=== PATIENT | female | born 2000 | race Caucasian/White ===

== ENCOUNTER 2019-03-18 19:04 | Emergency (ER) | payer OTHER ==
--- NOTE | 2019-03-18 19:24 | ERPHSYRPT ---
- History of Present Illness Time Seen by Provider: 03/18/19 19:20 Source: patient, family Exam Limitations: no limitations Patient Subjective Stated Complaint: Pt states, "I have a headache, dizziness, lightheadedness, sore throat and cough". Pt states, "I am achy and haven't felt good for a week." Triage Nursing Assessment: pt ambulated to rm 8, grandma at bedside, pt alert and oriented x3, cooperative. Pt c/o dizziness, light headedness, headache. Pt c/o of having cold symptoms x1 week, cough, runny nose and sore throat. Lungs clear, heart tones reg, pt had pacemaker, defib. Abd soft with active bs x4 quad, nontender. Physician History: Patient has had congestion, sore throat, cough for the past week. No evaluation or treatment prior to coming into the emergency department. Timing/Duration: gradual onset Severity: moderate ENT Location: throat Prearrival Treatment: no prearrival treatment Modifying Factors: Improves With: nothing Associated Symptoms: cough, fever (last fever was in the morning of 03/17/2019) , dizziness, headache, nasal congestion/drainage, sore throat, No ear pain (R), No ear pain (L), No chills, No change in hearing, No drooling, No ear drainage, No facial pain/swelling, No hearing loss, No jaw pain, No malaise, No motion sickness, No epistaxis, No nasal foreign body, No neck pain, No poor fluid intake, No poor solids intake, No ringing of ears, No swollen glands, No sinus infection, No tooth pain, No difficulty swallowing, No voice change Allergies/Adverse Reactions: amoxicillin [From Augmentin] Adverse Reaction (Verified 03/18/19 19:23) Rash clavulanic acid [From Augmentin] Adverse Reaction (Verified 03/18/19 19:23) Rash Hx Tetanus, Diphtheria Vaccination/Date Given: Yes Hx Influenza Vaccination/Date Given: No Hx Pneumococcal Vaccination/Date Given: No Immunizations Up to Date: Yes - Review of Systems Constitutional: Fever, No Chills, No Fatigue Eyes: No Eye Pain, No Vision Changes Ears, Nose, & Throat: Nose Congestion, Throat Pain, No Ear Pain, No Epistaxis, No Throat Swelling, No Painful Swallowing Respiratory: Cough, No Dyspnea, No Dyspnea on Exertion (SAMS) Cardiac: No Chest Pain, No Palpitations, No Syncope Abdominal/Gastrointestinal: No Abdominal Pain, No Nausea, No Vomiting, No Melena Genitourinary Symptoms: No Dysuria, No Frequency, No Hematuria, No Flank Pain Musculoskeletal: No Back Pain, No Neck Pain Skin: No Pruritis, No Rash Neurological: Headache, No Focal Weakness, No Lethargy, No Paralysis, No Sensory Changes Psychological: No Anxiety Endocrine: No Polydipsia, No Excessive Sweating Hematologic/Lymphatic: No Easy Bleeding, No Easy Bruising All Other Systems: Reviewed and Negative - Past Medical History Pertinent Past Medical History: Yes Neurological History: No Pertinent History ENT History: No Pertinent History Cardiac History: Congenital Heart Disease, Myocardial Infarction ([place]), Other Respiratory History: Asthma Endocrine Medical History: No Pertinent History Musculoskeletal History: No Pertinent History GI Medical History: No Pertinent History History: No Pertinent History Psycho-Social History: No Pertinent History Female Reproductive Disorders: No Pertinent History 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 - Past Surgical History Past Surgical History: Yes Neuro Surgical History: No Pertinent History Cardiac: CABG, Cardiac Catheterization Respiratory: No Pertinent History Gastrointestinal: No Pertinent History Genitourinary: No Pertinent History Musculoskeletal: No Pertinent History Female Surgical History: No Pertinent History - Social History Smoking Status: Never smoker Exposure to second hand smoke: Yes Drug Use: none Patient Lives Alone: No - Female History Hx Last Menstrual Period: 03/11/19 Hx Now: No - Nursing Vital Signs Nursing Vital Signs: Initial Vital Signs Temperature 97.6 F 03/18/19 19:09 Pulse Rate 62 03/18/19 19:09 Respiratory Rate 14 03/18/19 19:09 Blood Pressure 116/63 03/18/19 19:09 O2 Sat by Pulse Oximetry 98 03/18/19 19:09 Pain Scale Pain Intensity 7 - Physical Exam General Appearance: no apparent distress, alert Eye Exam: bilateral eye: normal inspection, PERRL, EOMI Ear Exam: bilateral ear: auricle normal, canal normal, TM normal Nasal Exam: normal inspection, No active bleeding, No discharge, No dried blood , No foreign body, No sinus tenderness Throat Exam: normal, pharynx normal, moist mucus membranes, No dental tenderness , No excessive drooling, No maxillary swelling, No pharynx swelling, No pharynx tenderness, No tongue swollen, No tonsillar exudate, No tonsillar swelling, No trismus, No uvula swelling Neck Exam: normal inspection, non-tender, supple, full range of motion, trachea midline, No JVD, No limited range of motion, No lymphadenopathy (R), No lymphadenopathy (L), No stiff neck, No tender lateral, No Brudzinski's sign, No Kernig's sign Cardiovascular/Respiratory Exam: chest non-tender, normal breath sounds, regular rate/rhythm, heart sounds normal, no JVD, no respiratory distress Abdominal Exam: non-tender, soft, no organomegaly, No guarding, No tenderness Neurologic Exam: alert, oriented x 3, cooperative, 1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, normal mood/affect, sensation nml, No motor deficits, No agitation, No uncooperative, No motor weakness Skin Exam: normal color, warm, dry, No rash, No petechiae, No cyanosis SpO2 Interpretation: normal SpO2: 98 O2 Delivery: Room Air - Course Nursing assessment & vital signs reviewed: Yes - Radiology Exams Chest X-ray Interpretation: Interpreted by me, Reviewed by me, Negative, No Fracture, No Pneumonia, No Pneumothorax, No Infiltrates, Nml Mediastinum, Other (Pacemaker /Defibrillator in place) Ordered Tests: Active Orders 24 hr Category Date Time Status Orthostatic Vital Signs STAT Care 03/18/19 19:25 Active CHEST 1 VIEW (PORTABLE) Stat Exams 03/18/19 19:24 Taken HCG,QUALITATIVE URINE Stat Lab 03/18/19 20:00 Completed UA W/RFX UR CULTURE Stat Lab 03/18/19 20:00 Completed Medication Summary Discontinued Medications Generic Name Dose Route Start Last Admin Trade Name Elva PRN Reason Stop Dose Admin Acetaminophen 1,000 mg 03/18/19 19:53 03/18/19 20:04 Tylenol Extra Strength 500 Mg PO 03/18/19 19:54 1,000 mg STAT STA Administration Acetaminophen Confirm 03/18/19 20:03 Tylenol Extra Strength 500 Mg Administered 03/18/19 20:04 Dose 1,000 mg .ROUTE .STK-MED ONE Diphenhydramine HCl 25 mg 03/18/19 19:53 03/18/19 20:04 Benadryl 25 Mg Capsule PO 03/18/19 19:54 25 mg STAT ONE Administration Diphenhydramine HCl Confirm 03/18/19 20:03 Benadryl 25 Mg Capsule Administered 03/18/19 20:04 Dose 25 mg .ROUTE .STK-MED ONE Lab/Rad Data: Laboratory Results 03/18/19 03/18/19 03/18/19 Range/Units 20:00 20:00 19:50 Urine Color STRAW (YELLOW) Urine Appearance CLEAR (CLEAR) Urine pH 8.0 (5-6) Ur Specific [place] 1.004 (1.005-1.025) Urine Protein NEGATIVE (Negative) Urine Ketones NEGATIVE (NEGATIVE) Urine Blood SMALL (0-5) Abner/ul Urine Nitrite NEGATIVE (NEGATIVE) Urine Bilirubin NEGATIVE (NEGATIVE) Urine Urobilinogen NEGATIVE (0-1) mg/dL Ur Leukocyte Esterase TRACE (NEGATIVE) Urine WBC (Auto) 3-5 (0-5) /HPF Urine RBC (Auto) NONE (0-2) /HPF U Epithel Cells (Auto) RARE (FEW) /HPF Urine Mucus (Auto) SLIGHT (NEGATIVE) /HPF Urine Culture Reflexed NO (NO) Urine Glucose NEGATIVE (NEGATIVE) mg/dL Urine HCG, Qual NEGATIVE (Negative) Group A Strep Antibody NEGATIVE (NEGATIVE) - Progress Progress: improved Progress Note: 03/18/19 21:12 Patient's headache and dizziness have completely resolved. Patient has no chest pain, cough, dyspnea or fever complaints. Counseled pt/family regarding: lab results, diagnosis, need for follow-up, rad results - Departure Departure Disposition: Home Clinical Impression: Cough in adult patient, Dizziness Acute pharyngitis, unspecified Qualifiers: Pharyngitis/tonsillitis etiology: unspecified etiology Qualified Code(s): J02.9 - Acute pharyngitis, unspecified Headache Qualifiers: Headache type: other headache syndrome Qualified Code(s): G44.89 - Other headache syndrome Condition: Good Critical Care Time: No Referrals: REGI MENDEZ [Primary Care Provider] - Follow Up with PCP/3 days Instructions: Headache, Adult (DC), Cough, Adult (DC), Sore Throat, Adult (DC) , Dizziness, Nonvertigo, (DC) Additional Instructions: Your chest x-ray was negative as well as your lab tests. Return if any worse headache, sore throat, or dizziness or fever for immediate re-evaluation in the emergency department or any other concerning signs or symptoms for immediate evaluation. Prescriptions: Promethazine/Dextromethorphan [Promethazine-Dm Solution] 5 ml PO Q6-8HPRN PRN # 90 ml PRN Reason: Cough
[2019-03-18] MEDS ORDERED: BENADRYL 25 MG CAPSULE PO ONE (19:53)
[2019-03-18] MEDS ORDERED: TYLENOL EXTRA STRENGTH 500 MG PO STA (19:53)
[2019-03-18] MEDS ORDERED: BENADRYL 25 MG CAPSULE ONE (20:03)
[2019-03-18] MEDS ORDERED: TYLENOL EXTRA STRENGTH 500 MG ONE (20:03)
[2019-03-18 20:12] LABS: Appearance CLEAR (CLEAR); Bilirubin NEGATIVE (NEGATIVE); Blood SMALL Ery/ul (0-5); Epithelial Cells RARE /HPF (FEW); Glucose NEGATIVE (NEGATIVE); Ketones NEGATIVE (NEGATIVE); Leukocyte Esterase TRACE (NEGATIVE); Mucus SLIGHT /HPF (NEGATIVE); Nitrite NEGATIVE (NEGATIVE); Protein,Urine Dip NEGATIVE (Negative); Specific Gravity 1.004 (1.005-1.025); Urobilinogen NEGATIVE mg/dL (0-1)
[2019-03-18 21:16] VITALS: BP 113/70; PULSE 67; O2SAT 98
--- NOTE | 2019-03-19 08:47 | XRAY ---
Indication: Fever and cough. Comparison: None Portable chest demonstrates normal heart, lungs, and bony thorax with incidental left-sided AICD and sternotomy wires.
== END 2019-03-18 21:23 | disposition home or self-care (01) ==
LOC: ED 19:04
DX: J02.9 Acute pharyngitis, unspecified (principal); R05 Cough; G44.89 Other headache syndrome; R42 Dizziness and giddiness
CPT/HCPCS: 71045; 81001; 84703; 87651; 99284; A9270-GY